=== PATIENT | female | born 1945 | race Caucasian/White ===

== ENCOUNTER → 2018-07-20 | Outpatient (CLI) | payer MEDICARE, BC | END | disposition home or self-care (01) | LOC: HKI 10:51 | DX: M17.11 Unilateral primary osteoarthritis, right knee (principal); I10 Essential (primary) hypertension; I25.2 Old myocardial infarction; Z96.652 Presence of left artificial knee joint; Z79.82 Long term (current) use of aspirin | CPT/HCPCS: G0463 ==

== ENCOUNTER → 2018-08-17 | Outpatient (CLI) | payer BC, MEDICARE | END | disposition home or self-care (01) | LOC: HKI 10:01 | DX: Z01.818 Encounter for other preprocedural examination (principal) | CPT/HCPCS: G0463 ==

== ENCOUNTER 2018-08-27 06:15 | Observation (INO) | payer BC, MEDICARE ==
[2018-08-27] MEDS ORDERED: TRANEXAMIC ACID 1GM/100ML(PMX) 100 ML ×2 (07:00→08:21)
[2018-08-27] MEDS ORDERED: POLYMYXIN B 500000 UNIT INJ (07:00)
[2018-08-27] MEDS: LACTATED RINGER'S 1,000 ML IV* (07:09)
[2018-08-27] MEDS: DEXAMETHASONE 4 MG/ML 1 ML INJ IV (07:09)
[2018-08-27] MEDS: ACETAMINOPHEN 1000MG/100ML IV 100 ML IVPB (07:09)
[2018-08-27] MEDS ORDERED: ACETAMINOPHEN 500 MG TAB PO (08:00)
[2018-08-27] MEDS: CEFAZOLIN 2 GM/50 ML (PMX) 50 ML IVPB ×2 (08:00→17:40)
[2018-08-27] MEDS ORDERED: CEFAZOLIN 1 GM INJ (08:21)
[2018-08-27] MEDS ORDERED: PROPOFOL 20 ML (08:21)
[2018-08-27] MEDS ORDERED: LIDOCAINE 2% (SDV) 5 ML INJ (08:21)
[2018-08-27] MEDS: TRANEXAMIC ACID 1GM/100ML(PMX) 100 ML PRE-OP X1 IVPB ×2 (08:49→08:59)
[2018-08-27] MEDS ORDERED: SEVOFLURANE 15 MIN (09:00)
[2018-08-27] MEDS ORDERED: ATROPINE 1 MG/10 ML SYRINGE (09:32)
[2018-08-27] MEDS ORDERED: EPHEDrine SULFATE 50 MG/5 ML SYG (09:32)
[2018-08-27] MEDS: TRANEXAMIC ACID 1GM/100ML(PMX) 100 ML INTRA-OP X1 IVPB ×2 (09:38→10:35)
[2018-08-27] MEDS ORDERED: ROPIVACAINE 0.5 % 30 ML VIAL (10:28)
[2018-08-27] MEDS: BACITRACIN 50000 UNITS INJ (10:39)
[2018-08-27] MEDS: POLYMYXIN B 500000 UNIT INJ IRR (10:39)
[2018-08-27] MEDS ORDERED: ONDANSETRON 4 MG INJ (10:53)
[2018-08-27] MEDS ORDERED: METOCLOPRAMIDE 10 MG INJ (10:54)
[2018-08-27] MEDS ORDERED: MIDAZOLAM 1 MG/ML 2 ML INJ IV (11:00)
[2018-08-27] MEDS ORDERED: LABETALOL HCL 20MG INJ IV (11:00)
[2018-08-27] MEDS ORDERED: DIPHENHYDRAMINE 50 MG INJ IV (11:00)
[2018-08-27] MEDS ORDERED: HYDROmorphONE 1 MG/5 ML IV SYRINGE IV ×3 (11:00)
[2018-08-27] MEDS ORDERED: METOCLOPRAMIDE 10 MG INJ IV (11:00)
[2018-08-27] MEDS ORDERED: ONDANSETRON 4 MG INJ IV (11:00)
[2018-08-27] MEDS ORDERED: MEPERIDINE 25 MG INJ IV (11:00)
[2018-08-27] MEDS ORDERED: NALOXONE (0.4 MG/ML) INJ IV (11:00)
[2018-08-27] MEDS ORDERED: NACL 0.9% 3 ML SYG IV (11:00)
[2018-08-27] MEDS ORDERED: hydrALAzine 20 MG INJ IV (11:00)
[2018-08-27] MEDS ORDERED: FENTAnyl 50 MCG/ML VIAL IV ×3 (11:00)
[2018-08-27] MEDS ORDERED: oxyCODONE 5 MG TAB PO (11:00)
[2018-08-27] MEDS: EPHEDrine SULFATE 50 MG/5 ML SYG IV (12:32)
[2018-08-27] MEDS: GABAPENTIN 100 MG CAP PO ×2 (14:16→20:32)
[2018-08-27] MEDS: oxyCODONE 5 MG TAB PO ×2 (14:59→20:28)
[2018-08-27] MEDS: LACTATED RINGER'S 1,000 ML IV ×2 (17:39→23:07)
[2018-08-27] MEDS: ATORVASTATIN 40 MG TAB PO (20:28)
[2018-08-27] MEDS: TIMOLOL 0.25% 5 ML OPH LEFT EYE (20:30)
[2018-08-27] MEDS: PREDNISOLONE ACET 1% 5 ML OPH LEFT EYE (20:31)
[2018-08-27] MEDS: BRIMONIDINE 0.1% 5 ML OPH LEFT EYE (21:00)
[2018-08-27] MEDS: METOPROLOL 25 MG TAB PO (21:00)
[2018-08-27] MEDS: DEXTROSE 5%-0.9% NACL 1,000 ML IV (21:15)
[2018-08-28] MEDS: CEFAZOLIN 2 GM/50 ML (PMX) 50 ML IVPB ×2 (00:51→07:33)
[2018-08-28] MEDS: oxyCODONE 5 MG TAB PO ×3 (00:57→20:19)
[2018-08-28 05:23] LABS: ADD MAN DIFF? NO
[2018-08-28 05:25] LABS: BASOPHILS % 0.2 % (0.0-2.0); EOSINOPHILS # 0.1 10^3/ul (0.0-0.5); EOSINOPHILS % 0.5 % (0.0-7.0); HEMATOCRIT 31.6 % (37.0-47.0); HEMOGLOBIN 10.2 g/dl (12.0-16.0); LYMPHOCYTES # 1.6 10^3/ul (0.8-2.9); LYMPHOCYTES % 14.5 % (15.0-51.0); MEAN CORPUSCULAR HEMOGLOBIN 29.5 pg (29.0-33.0); MEAN CORPUSCULAR HGB CONC 32.3 g/dl (32.0-37.0); MEAN CORPUSCULAR VOLUME 91.3 fl (82.0-101.0); MEAN PLATELET VOLUME 11.2 fl (7.4-10.4); MONOCYTE # 0.6 10^3/ul (0.3-0.9); MONOCYTES % 5.6 % (0.0-11.0); NEUTROPHIL # 8.5 10^3/ul (1.6-7.5); NEUTROPHILS % 78.7 % (39.0-77.0); PLATELET COUNT 173 10^3/UL (140-415); RED BLOOD COUNT 3.46 10^6/ul (4.20-5.40); RED CELL DISTRIBUTION WIDTH 12.4 % (11.5-14.5)
[2018-08-28 05:25] LABS: WHITE BLOOD COUNT 10.8 10^3/ul (4.8-10.8)
[2018-08-28 05:57] LABS: ANION GAP 5 (5-13); BLOOD UREA NITROGEN 12 mg/dl (7-20); CALCIUM 8.5 mg/dl (8.4-10.2); CARBON DIOXIDE 26 mmol/L (21-31); CHLORIDE 109 mmol/L (97-110); CREATININE 0.44 mg/dl (0.44-1.00); GLUCOSE 82 mg/dl (70-220); POTASSIUM 3.7 mmol/L (3.5-5.1); SODIUM 140 mmol/L (135-144)
[2018-08-28] MEDS: DOCUSATE SODIUM 100 MG CAP PO ×2 (08:23→20:20)
[2018-08-28] MEDS: ASPIRIN (EC) 81 MG TAB PO ×2 (08:24→20:20)
[2018-08-28] MEDS: MULTIVITAMINS THERAPEUTIC TAB PO (08:24)
[2018-08-28] MEDS: CELECOXIB 100 MG CAP PO ×2 (08:24→20:20)
[2018-08-28] MEDS: GABAPENTIN 100 MG CAP PO ×3 (08:24→20:20)
[2018-08-28] MEDS: FERROUS SULFATE (EC) 325 MG TAB PO (08:24)
[2018-08-28] MEDS: TIMOLOL 0.25% 5 ML OPH LEFT EYE ×2 (08:25→20:27)
[2018-08-28] MEDS: LOSARTAN 50 MG TAB PO (09:00)
[2018-08-28] MEDS ORDERED: PANTOPRAZOLE (EC) 40 MG TAB PO (09:00)
[2018-08-28] MEDS: BRIMONIDINE 0.1% 5 ML OPH LEFT EYE ×2 (09:00→20:25)
[2018-08-28] MEDS: HYDROCHLOROTHIAZIDE 12.5 MG CAP PO (09:00)
[2018-08-28] MEDS: KETOROLAC 15 MG INJ IV (10:57)
[2018-08-28] MEDS ORDERED: ONDANSETRON 4 MG INJ IV (11:00)
[2018-08-28] MEDS: LACTATED RINGER'S 1,000 ML IV (11:37)
[2018-08-28] MEDS: MAGNESIUM HYDROXIDE 30ML CUP PO (12:46)
[2018-08-28] MEDS: SENNA TAB PO (15:46)
[2018-08-28] MEDS: ATORVASTATIN 40 MG TAB PO (20:20)
[2018-08-28] MEDS: METOPROLOL 25 MG TAB PO ×2 (20:20→21:00)
[2018-08-28] MEDS: PREDNISOLONE ACET 1% 5 ML OPH LEFT EYE (20:27)
[2018-08-28] MEDS: PANTOPRAZOLE (EC) 40 MG TAB PO (22:51)
[2018-08-29] MEDS: LACTATED RINGER'S 1,000 ML IV (00:07)
[2018-08-29] MEDS: oxyCODONE 5 MG TAB PO ×2 (01:04→14:26)
[2018-08-29] MEDS: KETOROLAC 15 MG INJ IV (04:48)
[2018-08-29 05:05] LABS: ADD MAN DIFF? NO
[2018-08-29 05:19] LABS: BASOPHILS % 0.5 % (0.0-2.0); EOSINOPHILS # 0.2 10^3/ul (0.0-0.5); EOSINOPHILS % 3.3 % (0.0-7.0); HEMATOCRIT 35.6 % (37.0-47.0); LYMPHOCYTES # 1.2 10^3/ul (0.8-2.9); LYMPHOCYTES % 21.2 % (15.0-51.0); MEAN CORPUSCULAR HEMOGLOBIN 29.8 pg (29.0-33.0); MEAN CORPUSCULAR HGB CONC 30.9 g/dl (32.0-37.0); MEAN CORPUSCULAR VOLUME 96.5 fl (82.0-101.0); MEAN PLATELET VOLUME 11.7 fl (7.4-10.4); MONOCYTE # 0.5 10^3/ul (0.3-0.9); MONOCYTES % 8.6 % (0.0-11.0); NEUTROPHIL # 3.6 10^3/ul (1.6-7.5); NEUTROPHILS % 65.7 % (39.0-77.0); RED BLOOD COUNT 3.69 10^6/ul (4.20-5.40); RED CELL DISTRIBUTION WIDTH 12.6 % (11.5-14.5)
[2018-08-29 05:19] LABS: WHITE BLOOD COUNT 5.5 10^3/ul (4.8-10.8)
[2018-08-29 05:38] LABS: ANION GAP 7 (5-13); BLOOD UREA NITROGEN 12 mg/dl (7-20); CALCIUM 8.8 mg/dl (8.4-10.2); CARBON DIOXIDE 29 mmol/L (21-31); CHLORIDE 104 mmol/L (97-110); CREATININE 0.53 mg/dl (0.44-1.00); GLUCOSE 105 mg/dl (70-220); POTASSIUM 4.7 mmol/L (3.5-5.1); SODIUM 140 mmol/L (135-144)
[2018-08-29] MEDS ORDERED: PANTOPRAZOLE (EC) 40 MG TAB PO (06:00)
[2018-08-29 06:03] LABS: PLATELET COUNT 134 10^3/UL (140-415); POSITIVE DIFF @See below
[2018-08-29] MEDS: MULTIVITAMINS THERAPEUTIC TAB PO (08:38)
[2018-08-29] MEDS: DOCUSATE SODIUM 100 MG CAP PO (08:38)
[2018-08-29] MEDS: FERROUS SULFATE (EC) 325 MG TAB PO (08:38)
[2018-08-29] MEDS: CELECOXIB 100 MG CAP PO (08:38)
[2018-08-29] MEDS: ASPIRIN (EC) 81 MG TAB PO (08:38)
[2018-08-29] MEDS: GABAPENTIN 100 MG CAP PO ×2 (08:38→12:27)
[2018-08-29] MEDS: TIMOLOL 0.25% 5 ML OPH LEFT EYE (09:00)
[2018-08-29] MEDS: LOSARTAN 50 MG TAB PO (09:00)
[2018-08-29] MEDS: BRIMONIDINE 0.1% 5 ML OPH LEFT EYE (09:00)
[2018-08-29] MEDS: HYDROCHLOROTHIAZIDE 12.5 MG CAP PO (09:00)
[2018-08-29] MEDS: SENNA TAB PO (10:25)
[2018-08-29 10:41] LABS: ACANTHOCYTES 1+ (0-0); ANISOCYTOSIS 1+ (0-0); BAND NEUTROPHILS % (M) 1 % (0-4); BURR CELLS 3+ (0-0); EOSINOPHILS % (M) 4 % (0-7); GIANT THROMBO% (M) 2 % (0-0); LYMPHOCYTES #M 1.1 10^3/ul (0.8-2.9); LYMPHOCYTES % (M) 20 % (15-51); MICROCYTOSIS 1+ (0-0); MONOCYTE #M 0.3 10^3/ul (0.3-0.9); MONOCYTES % (M) 7 % (0-11); PLATELET ESTIMATE DECREASED; POIKILOCYTOSIS 2+ (0-0); SEG NEUT #M 3.7 10^3/ul (1.6-7.5); SEGMENTED NEUTROPHILS (M) % 68 % (39-77); SMUDGE%M 3 % (0-0)
[2018-08-29] MEDS: MAGNESIUM HYDROXIDE 30ML CUP PO (14:25)
== END 2018-08-29 15:00 | disposition home health service (06) ==
LOC: REC 06:15 → MS1 12:56
DX: M17.11 Unilateral primary osteoarthritis, right knee (principal); I10 Essential (primary) hypertension; H40.9 Unspecified glaucoma; Z96.1 Presence of intraocular lens; K21.9 Gastro-esophageal reflux disease without esophagitis; E78.00 Pure hypercholesterolemia, unspecified; I25.10 Atherosclerotic heart disease of native coronary artery without angina pectoris; I25.2 Old myocardial infarction
CPT/HCPCS: 27447; 73560; 80048; 85025; 87081; 88304; 88311; 97110; 97116; 97161; 97530; 99217

== ENCOUNTER → 2018-09-14 | Outpatient (CLI) | payer MEDICARE, BC | END | disposition home or self-care (01) | LOC: HKI 10:24 | DX: Z09 Encounter for follow-up examination after completed treatment for conditions other than malignant neoplasm (principal); Z96.651 Presence of right artificial knee joint | CPT/HCPCS: 73560; 73560-RT ==